=== PATIENT | female | born 1990 | race Caucasian/White ===

== ENCOUNTER → 2017-11-15 11:52 | Outpatient (CLI) | payer OTHER, SELFPAY ==
[2017-11-15 13:19] LABS: Add Manual Diff / Slide Review NO; Basophils Percent Auto 0.6 % (0-2); Eosinophils Percent Auto 0.6 % (2-4); Hematocrit 37.3 % (36-46); Lymphocytes Percent Auto 14.3 % (25-40); Mean Corpuscular HGB Conc 34.8 % (30-36); Mean Corpuscular Hemoglobin 31.8 PG (26-34); Mean Corpuscular Volume 91.2 fL (80-100); Monocytes Percent Auto 6.2 % (3-14); Neutrophils Absolute Auto 9300 /uL (3000-5900); Neutrophils Percent Auto 78.3 % (50-75); Platelet Count 203 X10^3/uL (150-400); Red Blood Cell Count 4.09 X10^6/uL (4.0-5.2); White Blood Cell Count 11.9 X10^3/uL (4.5-11.0)
[2017-11-15 13:49] LABS: GTT (PREG) 1 Hour PP 50gm Dose 95 mg/dL (76-139)
[2017-11-15 14:40] LABS: Hep C Virus Ab w/Reflex Quant NEGATIVE s/c (NEGATIVE)
[2017-11-17 14:10] LABS: HSV 2 IGG AB < 0.90 index (< 0.90); HSV1IGG 5.45 index (< 0.90)
== END ==
PROVIDERS: PCP Specialist; Visit Provider Family Medicine
DX: Z34.92 Encounter for supervision of normal pregnancy, unspecified, second trimester (principal); Z3A.24 24 weeks gestation of pregnancy
CPT/HCPCS: 36415; 82950; 85025; 86695; 86696; 86803